=== PATIENT | male | born 1955 | race Two or more races ===

== ENCOUNTER 2020-11-04 14:47 | Outpatient (CLI) | payer MEDICAID | END 2020-11-04 23:59 | disposition home or self-care (01) | LOC: MSC 14:47 | PROVIDERS: ATTEND Internal Medicine | DX: R60.0 Localized edema (principal); R63.5 Abnormal weight gain; Z68.38 Body mass index [BMI] 38.0-38.9, adult; E55.9 Vitamin D deficiency, unspecified; I10 Essential (primary) hypertension; K21.9 Gastro-esophageal reflux disease without esophagitis; E03.9 Hypothyroidism, unspecified ==